=== PATIENT | female | born 1970 | race Caucasian/White ===

== ENCOUNTER 2022-06-14 19:52 | Outpatient (CLI) | payer SELFPAY ==
--- NOTE | 2022-06-27 11:40 | W.PM.SLEEP ---
Sleep Study Details Details Interpreting Provider: Danny Adams MD Date of Sleep Study: 06/14/22 Sleep Study Details: STUDY TYPE: All home ? BMI:? Not recorded ORDERING PROVIDER:? Cade INDICATION:? Concerns about sleep apnea ? SLEEP SUMMARY:? 464 minutes monitor RESPIRATORY SUMMARY:? AHI 29, supine AHI 31.5, right lateral AHI 20.1. Low oxygen 78% 3.6% of study oxygen less than 90%, 0.4% of study less than 85%. No snoring was recorded PERIODIC LIMB MOVEMENTS OF SLEEP:? Not recorded CARDIAC:? Range 33 to 99, mean 67.8 IMPRESSION:? Moderate obstructive sleep apnea with supine position dependency Bradycardia was noted during the study with heart rate down to 33. RECOMMENDATION: For the bradycardia would refer back to primary care for consideration of Holter monitoring. Four sleep apnea treatment options would not consist of AutoSet CPAP at a pressure of 4-17 versus a dental appliance. Would favor CPAP.
== END 2022-06-14 19:53 | disposition home or self-care (01) ==
LOC: SLEEP 19:53
PROVIDERS: Visit Provider Otolaryngology
DX: G47.33 Obstructive sleep apnea (adult) (pediatric) (principal)
CPT/HCPCS: 95806